=== PATIENT | female | born 1970 | race Caucasian/White ===

== ENCOUNTER → 2020-05-26 07:34 | Outpatient (CLI) | payer BC, MEDICAID | END | disposition home or self-care (01) | LOC: D.OPS 07:34 | PROVIDERS: ATTEND Surgery | DX: K21.9 Gastro-esophageal reflux disease without esophagitis (principal); K44.9 Diaphragmatic hernia without obstruction or gangrene ==

== ENCOUNTER → 2020-08-03 | Emergency (ER) | payer BC, MEDICAID ==
[~2020-08-03] VITALS: Ht 177.8 cm; Wt 64.1 kg
[~2020-08-03] MED LIST: AMBIEN10 MG PO; ATIVAN0.5 MG PO; CORTEF 5 MG TAB5 MG PO; CORTEF10 MG PO; CYANOCOBAL1000 MCG/4 SC; GABAPENTIN300 MG PO; PHENERGAN25 M1 PO; VITAMIN D21250 MC1 PO
[2020-08-03 15:24] VITALS: Ht 177.8 cm; Wt 64.1 kg
[2020-08-03 16:02] VITALS: BP 103/57
[2020-08-03 16:08] LABS: BASOPHILS 0.4 % (0-2); EOSINOPHILS 2.8 % (0-7); HEMATOCRIT 40.9 % (36.0-48.0); HEMOGLOBIN 13.8 g/dL (12-16); IMMATURE GRANULOCYTES 0.1 % (0-5); LYMPHOCYTE ABS# 3.27 10x3/uL (1.18-3.74); LYMPHOCYTES 38.4 % (15-50); MCH 30.5 pg (26.0-34.0); MCHC 33.7 g/dL (31.0-37.0); MCV 90.5 fL (80.0-100.0); MEAN PLATELET VOLUME 9.7 fL (7.4-10.4); MONOCYTES 7.3 % (2-11); NEUTROPHIL ABS# 4.34 10x3/uL (1.56-6.13); PLATELET COUNT 354 10x3/uL (130-400); RBC 4.52 10x6/uL (4.00-5.40); RDW 13.2 % (11.5-14.5); WBC 8.5 10x3/uL (4.8-10.8)
[2020-08-03 16:24] LABS: CALC OSMOLALITY 278 mosm/kg (275-300); CALCIUM 8.9 mg/dL (8.5-10.1); CHLORIDE - SERUM 103 mmol/L (98-107); CREATININE - SERUM 0.9 mg/dL (0.6-1.3); GLUCOSE 89 mg/dL (74-106); POTASSIUM - SERUM 3.9 mmol/L (3.5-5.1); SODIUM 140 mmol/L (136-145); UREA NITROGEN 14 mg/dL (7-18); eGFR NON AFRICAN AMERICAN 70 mL/min (90-120)
[2020-08-03 16:37] LABS: ALBUMIN 3.8 g/dL (3.4-5.0); ALKALINE PHOSPHATASE 89 U/L (30-120); ALT (SGPT) 17 U/L (10-68); AMYLASE - SERUM 39 U/L (25-115); LIPASE 160 U/L (73-393); PROTEIN - SERUM 7.4 g/dL (6.4-8.2); TROPONIN-I < 0.017 ng/mL (0.000-0.060)
[2020-08-03 18:33] LABS: BILIRUBIN NEGATIVE (NEGATIVE); KETONE NEGATIVE (NEGATIVE); NITRITE NEGATIVE (NEGATIVE); UROBILINOGEN NORMAL mg/dL (< 2)
== END | disposition home or self-care (01) ==
LOC: D.ER 15:18
PROVIDERS: Family Medicine
DX: R10.13 Epigastric pain (principal); E11.9 Type 2 diabetes mellitus without complications; J44.9 Chronic obstructive pulmonary disease, unspecified